=== PATIENT | male | born 1995 | race Caucasian/White ===

== ENCOUNTER 2019-12-20 19:35 | Emergency (ER) | payer MEDICAID ==
[2019-12-20] MEDS ORDERED: AMOXICILLIN500 MG PO (20:02)
[2019-12-20 20:23] VITALS: BP 130/88
== END 2019-12-20 20:32 | disposition home or self-care (01) ==
LOC: ED 19:35
DX: S61.212A Laceration without foreign body of right middle finger without damage to nail, initial encounter (principal); W27.0XXA Contact with workbench tool, initial encounter; Y92.89 Other specified places as the place of occurrence of the external cause; Y99.0 Civilian activity done for income or pay